=== PATIENT | male | born 1965 | race Caucasian/White ===

== ENCOUNTER 2017-08-04 10:44 | Emergency (ER) | payer MEDICAID, OTHER ==
[~2017-08-04] VITALS: Ht 180.3 cm; Wt 69.9 kg
[~2017-08-04 10:44] MED LIST: LEVO750T26 PO
[2017-08-04] MEDS ORDERED: KETOROLAC 30 MG/1 ML IM ONE (12:00)
[2017-08-04] MEDS ORDERED: KETOROLAC 30 MG/1 ML ONE (12:17)
[2017-08-04 13:16] VITALS: BP 110/73
== END 2017-08-04 13:18 | disposition home or self-care (01) ==
LOC: ED 12:54
DX: J20.9 Acute bronchitis, unspecified (principal); J44.1 Chronic obstructive pulmonary disease with (acute) exacerbation; F17.210 Nicotine dependence, cigarettes, uncomplicated
CPT/HCPCS: 71046; 96372; 99284; J1885

== ENCOUNTER 2018-12-04 08:23 | Emergency (ER) | payer MEDICAID, OTHER ==
[~2018-12-04] VITALS: Ht 180.3 cm; Wt 70.6 kg
[2018-12-04 08:25] VITALS: BP 129/83
--- NOTE | 2018-12-04 08:50 | NUR ---
left arm lesion with pus. denies fever, body aches
== END 2018-12-04 09:13 | disposition home or self-care (01) ==
LOC: ED 08:48
DX: L03.114 Cellulitis of left upper limb (principal); J44.9 Chronic obstructive pulmonary disease, unspecified
CPT/HCPCS: 99283

== ENCOUNTER 2021-02-11 00:10 | Emergency (ER) | payer MEDICAID, OTHER ==
[~2021-02-11] VITALS: Ht 180.3 cm; Wt 81.0 kg
[2021-02-11] MEDS ORDERED: DIPHENHYDRAMINE 25 MG CAPSULE PO ONE (00:30)
[2021-02-11 00:46] LABS: BASOPHILS % (AUTO) 1 % (0-1); EOSINOPHILS % (AUTO) 7 % (1-7); LYMPHOCYTES % (AUTO) 31 % (22-44); MEAN CORPUSCULAR HEMOGLOBIN 30.8 pg (27.5-34.5); MEAN CORPUSCULAR HGB CONC 33.9 g/dL (33.2-36.2); MEAN PLATELET VOLUME 9.1 fL (7.4-10.4); MONOCYTES % (AUTO) 9 % (2-9); NEUTROPHILS % (AUTO) 52 % (42-75); PLATELET COUNT 227 x10^3/uL (130-400); RED BLOOD COUNT 5.16 x10^6/uL (4.38-5.82); RED CELL DISTRIBUTION WIDTH 14.3 % (9.4-14.8)
[2021-02-11 00:54] LABS: ALANINE AMINOTRANSFERASE 39 U/L (12-78); ALBUMIN 3.8 g/dL (3.4-5.0); ANION GAP 5 mmol/L (5-15); CALCIUM 8.6 mg/dL (8.5-10.1); CHLORIDE 107 mmol/L (98-107)
[2021-02-11 00:57] LABS: ALKALINE PHOSPHATASE 89 U/L (45-117); BILIRUBIN,TOTAL 0.5 mg/dL (0.2-1.0); TOTAL PROTEIN 7.8 g/dL (6.4-8.2)
[2021-02-11] MEDS ORDERED: DIPHENHYDRAMINE 25 MG CAPSULE ONE (03:20)
[2021-02-11 04:16] VITALS: BP 137/98
== END 2021-02-11 04:20 | disposition home or self-care (01) ==
LOC: ED 00:45
DX: T78.40XA Allergy, unspecified, initial encounter (principal); J44.9 Chronic obstructive pulmonary disease, unspecified; F17.200 Nicotine dependence, unspecified, uncomplicated; X58.XXXA Exposure to other specified factors, initial encounter
CPT/HCPCS: 36415; 80053; 83690; 85025; 99283; Q0163